=== PATIENT | female | born 1980 | race Two or more races ===

== ENCOUNTER 2018-11-20 12:59 | Emergency (ER) | payer OTHER ==
[~2018-11-20] VITALS: Ht 157.5 cm; Wt 61.2 kg
[~2018-11-20 12:59] MED LIST: CIPRO500 MG PO; LEVSIN/SL0.125 MG SL; NO; TAMS0.4C PO; TRAMADOL HCL50 MG PO; ULTRACET PO
== END 2018-11-20 17:22 | disposition home or self-care (01) ==
LOC: ER 12:59
DX: M94.0 Chondrocostal junction syndrome [Tietze] (principal); R07.89 Other chest pain

== ENCOUNTER 2022-02-05 14:51 | Emergency (ER) | payer OTHER ==
[~2022-02-05] VITALS: Ht 157.5 cm; Wt 61.2 kg
== END 2022-02-05 18:06 | disposition home or self-care (01) ==
LOC: ER 14:51
DX: R07.9 Chest pain, unspecified (principal); Z88.6 Allergy status to analgesic agent